=== PATIENT | male | born 1985 | race Caucasian/White ===

== ENCOUNTER 2020-09-24 12:01 | Emergency (ER) | payer OTHER, SELFPAY ==
--- NOTE | 2020-09-24 | ECG_ITS ---
Test Reason : DIZZINESS Blood Pressure : / mmHG Vent. Rate : 096 BPM Atrial Rate : 096 BPM P-R Int : 132 ms QRS Dur : 090 ms QT Int : 322 ms P-R-T Axes : 051 075 060 degrees QTc Int : 406 ms Normal sinus rhythm Normal ECG When compared with ECG of 16-MAY-2017 04:14, No significant change was found Referred By: Tomas De La Cruz Electronically Signed By:GRADY KAUFMAN
[2020-09-24 12:04] VITALS: BP 117/82; PULSE 145; RESP 24; TEMP 36.8; O2SAT 97; BMI 22.1
--- NOTE | 2020-09-24 12:28 | ED_ITS ---
HPI - Chest Pain General Chief Complaint: Chest Pain Stated Complaint: chest pain Time Seen by Provider: 09/24/20 12:24 Source: patient Mode of arrival: ambulatory Limitations: no limitations History of Present Illness HPI narrative: 35-year-old male who presents emergency department for evaluation of near syncopal episode. The patient has a mechanical aortic valve. He states that he was playing softball and he ran the bases. He states that he then went back to 1st base and developed a change in his vision. He states that he was seeing black spots mainly in his right eye vision. He denied headache. He st ates that he went and sat down on the bench. He then developed bilateral hand tingling S and bilateral feet tingling this. His whole face then became numb. He felt as if he was going to pass out. He developed nausea but no vomiting. He drink fluid with no relief his symptoms. He then sat in an air-conditioned car and his friends drove him to the emergency department for evaluation. The patient states that he had a bicuspid aortic valve which he states was deteriorating. He had a mechanical aortic valve replacement done at [facility] on 01/27/2020. He is on warfarin. He states that prior to his chemical valve replacement he had 3 or 4 episodes similar to the above episode which he attributed to ?anxiety/panic attacks ?. He states that he has not had any of these attacks since having his aortic valve replaced until today's episode. Related Data Allergies Allergy/AdvReac Type Severity Reaction Status Date / Time penicillin V Allergy Unknown hives and Verified 05/12/12 00:00 shortness of breath Penicillins Allergy Unknown HIVES Unverified 12/30/19 16:13 Review of Systems Review of Systems: Yes all other systems are reviewed and are negative FORMERLY [facility], [facility]–1983 Past Medical History FORMERLY [facility], [facility]–1983 Narrative: Past medical history: Bicuspid aortic valve requiring aortic valve replacement. Past surgical history: Mechanical aortic valve replacement on 01/27/2020 at [facility], on warfarin anticoagulation. Dental extractions. Social history: The patient does vape tobacco products, he uses 1 pot per day. He occasionally drinks alcohol. He denies drug use. Surgical History (Updated 09/24/20 @ 12:11 by Serafin Lara) Aortic valve replaced Social History Social History Advance Directives: No Advance Directives Information Provided: No Physical Exam Vital Signs: Vital Signs: Last Vital Signs Temp 98.2 F 09/24/20 12:04 Pulse 145 H 09/24/20 12:04 Resp 24 H 09/24/20 12:04 BP 117/82 09/24/20 12:04 Pulse Ox 97 09/24/20 12:04 Body Mass Index 22.1 Const: Other: Awake, alert, very pleasant cooperative, answers all questions appropriately, does not appear to be in distress HENMT: Head: Yes normal to inspection, Yes normocephalic and Yes atraumatic Ears: external ears normal General nose exam: Normal external nose present Face and sinus: Yes normal facial exam Mouth: Normal oral and palatal mucosa present Throat: Yes posterior oropharynx normal Eyes: Periorbital: periorbital findings normal Eyelids: Yes eyelids normal Conjunctivae: conjunctivae normal Sclerae: sclerae normal Corneas: corneas normal Pupils: Equal, round and reactive pupils present Direct O phthalmoscopy: normal light reflex Neck: Neck: Yes full ROM, Yes no lymphadenopathy, Yes no meningeal signs, Yes trachea midline and Yes supple Chest: Chest palpation & inspection: normal inspection of the chest and normal palpation of entire chest wall Resp: Effort & Inspection: normal respiratory effort and able to speak in complete sentences Auscultation: clear to auscultation bilaterally Cardio: Rate: regular rate Rhythm: regular rhythm Heart sounds: S1 abnormal (Mechanical S1 with crisp clicking noise), S2 normal heart sound present, no murmurs and Other heart sounds present GI: Inspection: Yes normal to inspection Palpation (GI): Soft to palpation, nontender, no guarding, not rigid and No hepatosplenomegaly present : General: Yes no CVA tenderness Back/Spine/Pelvis: Back: no CVA tenderness Cervical Spine: normal cervical lordosis Thoracic/Lumbar Spine: thoracic and lumbar spine normal to inspection Skin: Lesions: no lesions Rashes: no rashes Wounds: no wounds Neuro: General: no meningeal signs Cranial nerves: Yes CN's II-XII intact bilaterally and Yes Equal, round and reactive pupils present Cognition ( Neuro): normal cognition Motor exam (neuro): 5/5 motor strength present throughout Extrem: General: Yes normal to inspection and Yes full ROM Psych: Appearance: well kempt Mental Status: mental status grossly normal Speech and movement: Normal speech and movement present Affect: normal affect Attitude: cooperative Thought process: Normal thought process present Thought content: Normal thought content present Course Course Course Narrative: 35-year-old male who presents emergency department for evaluation of near syncopal episode with bilateral hand, feet and facial numbness which occurred after he ran the bases in a softball game. The patient does have a mechanical aortic valve which was placed at [facility] on 01/27/2020. Patient's physical examination was unremarkable with a normal- sounding mechanical valve in aortic position. The patient's presentation is consistent with hyperventilation syndrome which I believe was triggered by him running the bases after getting a hit in softball. I did order a CBC, CMP, PT/INR, troponin, 12 EKG. Patient will be treated with normal saline IV x1 L and Ativan 1 mg IV. 1409: Patient is feeling better after the IV Ativan and IV fluid. The patient's laboratory evaluation was unremarkable. Patient's INR is 1.5 he states that his thoracic surgeon wants to keep it between 1.5 and 2. The patient was discharged home with printed and verbal instructions and hyperventilation syndrome. He is advised to follow-up with his PCP and his thoracic surgeon for further evaluation. MDM - Chest Pain Lab Data Result diagrams: 09/24/20 12:31 09/24/20 12:31 Labs: Lab Results 09/24/20 09/24/20 09/24/20 Range/Units 12:31 12:31 12:31 WBC 5.5 (4.8-10.8) X10*3/uL RBC 4.58 L (4.60-5.80) X10*6/uL Hgb 12.6 L (14.0-18.0) g/dl Hct 37.6 L (42-52) % MCV 82.1 (80-98) fL MCH 27.5 (27.0-33.0) pg MCHC 33.5 (31.0-36.0) g/dl RDW 13.7 (11.0-16.0) % Plt Count 284 (160-400) X10*3/uL MPV 9.5 (9.4-12.4) fL Immature Gran % (Auto) 0.2 (0.0-0.4) % Neut % (Auto) 64.5 (45-73) % Lymph % (Auto) 27.5 (20-40) % [place] % (Auto) 6.7 (2-11) % Eos % (Auto) 0.9 (0-4) % Baso % (Auto) 0.2 (0-2) % Lymph # (Auto) 1.5 (1.2-4.9) X10*3/uL [place] # (Auto) 0.4 (0.1-1.2) X10*3/uL Eos # (Auto) 0.1 (0.0-0.4) X10*3/uL Baso # (Auto) 0.0 (0.0-0.2) X10*3/uL Abs Immat Gran (auto) 0.01 (0.00-0.03) X10*3/uL Absolute Neuts (auto) 3.6 (2.0-8.3) X10*3/uL Absolute Nucleated RBC 0.000 (0.0-0.012) X10*3/uL Nucleated RBC % (auto) 0.0 (0.0-0.2) /100WBC PT (10.8-13.0) SEC INR (0.9-1.1) Sodium 139 (135-145) mmol/L Potassium 4.2 (3.3-5.1) mmol/L Chloride 105 (96-108) mmol/L Carbon Dioxide 22 (22-29) mmol/L Anion Gap 16 (12-20) BUN 21 H (9-16) mg/dL Creatinine 0.97 (0.5-1.4) mg/dL Estim Creat Clear Calc 112.2 Estimated GFR > 60 Random Glucose 119 H (60-115) mg/dL Calcium 10.1 (8.4-10.2) mg/dL Total Bilirubin 0.5 (0.0-1.0) mg/dL AST 16 (5-37) U/L ALT 18 (0-40) U/L Alkaline Phosphatase 49 (39-117) U/L Troponin I High Sens 3.5 (<3.5-35.0) ng/L Total Protein 7.5 (6.5-8.0) g/dL Albumin 4.7 (3.5-5.0) g/dL 09/24/20 Range/Units 12:31 WBC (4.8-10.8) X10*3/uL RBC (4.60-5.80) X10*6/uL Hgb (14.0-18.0) g/dl Hct (42-52) % MCV (80-98) fL MCH (27.0-33.0) pg MCHC (31.0-36.0) g/dl RDW (11.0-16.0) % Plt Count (160-400) X10*3/uL MPV (9.4-12.4) fL Immature Gran % (Auto) (0.0-0.4) % Neut % (Auto) (45-73) % Lymph % (Auto) (20-40) % [place] % (Auto) (2-11) % Eos % (Auto) (0-4) % Baso % (Auto) (0-2) % Lymph # (Auto) (1.2-4.9) X10*3/uL [place] # (Auto) (0.1-1.2) X10*3/uL Eos # (Auto) (0.0-0.4) X10*3/uL Baso # (Auto) (0.0-0.2) X10*3/uL Abs Immat Gran (auto) (0.00-0.03) X10*3/uL Absolute Neuts (auto) (2.0-8.3) X10*3/uL Absolute Nucleated RBC (0.0-0.012) X10*3/uL Nucleated RBC % (auto) (0.0-0.2) /100WBC PT 17.5 H (10.8-13.0) SEC INR 1.5 H (0.9-1.1) Sodium (135-145) mmol/L Potassium (3.3-5.1) mmol/L Chloride (96-108) mmol/L Carbon Dioxide (22-29) mmol/L Anion Gap (12-20) BUN (9-16) mg/dL Creatinine (0.5-1.4) mg/dL Estim Creat Clear Calc Estimated GFR Random Glucose (60-115) mg/dL Calcium (8.4-10.2) mg/dL Total Bilirubin (0.0-1.0) mg/dL AST (5-37) U/L ALT (0-40) U/L Alkaline Phosphatase (39-117) U/L Troponin I High Sens (<3.5-35.0) ng/L Total Protein (6.5-8.0) g/dL Albumin (3.5-5.0) g/dL ECG Data ECG #1: Attestation: I personally reviewed and interpreted this ECG as follows: Interpretation: 1233: Normal sinus rhythm with a rate of 96, normal [place] interval, QRS duration and QTC interval, no ST segment elevation, no ST segment depression, no PACs, no PVCs. This is a normal EKG. Discharge Plan Discharge Clinical Impression: Acute hyperventilation syndrome Patient Disposition: Home, Self-Care Instructions: Hyperventilation (ED) Additional Instructions: Your laboratory evaluation was unremarkable. Your INR today was 1.5. Your EKG was unremarkable. You were treated with normal saline IV x1 L and Ativan 1 mg IV. Your symptoms and presentation are consistent with hyperventilation syndrome. Follow-up with your doctor in 2 days. Please return to the emergency department if your symptoms get worse or if you develop any symptoms that are concerning to you.
[2020-09-24 12:36] LABS: MANUAL DIFF FLAG NO
[2020-09-24] MEDS: LORazepam 2 MG/ML VIAL 1 MG IVPUSH (12:36)
[2020-09-24 12:37] LABS: Basophils Percent Auto 0.2 % (0-2); Eosinophils Absolute Auto 0.1 X10*3/uL (0.0-0.4); Eosinophils Percent Auto 0.9 % (0-4); Hematocrit 37.6 % (42-52); Hemoglobin 12.6 g/dl (14.0-18.0); Imm Gran Abs Auto 0.01 X10*3/uL (0.00-0.03); Imm Gran Pct Auto 0.2 % (0.0-0.4); Lymphocytes Absolute Auto 1.5 X10*3/uL (1.2-4.9); Lymphocytes Percent Auto 27.5 % (20-40); Mean Corpuscular HGB Conc 33.5 g/dl (31.0-36.0); Mean Corpuscular Hemoglobin 27.5 pg (27.0-33.0); Mean Corpuscular Volume 82.1 fL (80-98); Mean Platelet Volume 9.5 fL (9.4-12.4); Monocytes Absolute Auto 0.4 X10*3/uL (0.1-1.2); Monocytes Percent Auto 6.7 % (2-11); Neutrophils Absolute Auto 3.6 X10*3/uL (2.0-8.3); Neutrophils Percent Auto 64.5 % (45-73); Platelet Count 284 X10*3/uL (160-400); Red Blood Count 4.58 X10*6/uL (4.60-5.80); Red Cell Distribution Width 13.7 % (11.0-16.0); White Blood Count 5.5 X10*3/uL (4.8-10.8)
[2020-09-24] MEDS: 0.9 % Sodium Chloride 1,000 ML 999 ML IV (12:37)
[2020-09-24 12:52] LABS: INTERNATIONAL NORM RATIO 1.5 (0.9-1.1); Prothrombin Time 17.5 SEC (10.8-13.0)
[2020-09-24 13:07] LABS: Alanine Aminotransferase 18 U/L (0-40); Albumin Level 4.7 g/dL (3.5-5.0); Alkaline Phosphatase 49 U/L (39-117); Anion Gap 16 (12-20); Aspartate Amino Transferase 16 U/L (5-37); Bilirubin Total 0.5 mg/dL (0.0-1.0); Blood Urea Nitrogen 21 mg/dL (9-16); Calcium 10.1 mg/dL (8.4-10.2); Carbon Dioxide 22 mmol/L (22-29); Chloride 105 mmol/L (96-108); Creatinine Clr Calc Pharmacy 112.2; Estimated Glomerular Filt Rate > 60; Glucose Random 119 mg/dL (60-115); Potassium 4.2 mmol/L (3.3-5.1); Sodium 139 mmol/L (135-145); Total Protein 7.5 g/dL (6.5-8.0)
[2020-09-24 13:12] LABS: Troponin-I High Sensitivity 3.5 ng/L (<3.5-35.0)
== END 2020-09-24 14:59 | disposition home or self-care (01) ==
PROVIDERS: Emergency Provider Emergency Medicine Emergency Medical Services
DX: F45.8 Other somatoform disorders (principal); Z95.2 Presence of prosthetic heart valve; Z79.01 Long term (current) use of anticoagulants
CPT/HCPCS: 36415; 80053; 84484; 85025; 85610; 93005; 96361; 96374; 99283; 99284; J2060